=== PATIENT | male | born 1965 | race Caucasian/White ===

== ENCOUNTER 2017-08-12 10:49 | Emergency (ER) | payer MEDICARE ==
[2016-02-08 16:11] VITALS: BMI 26.6
[~2017-08-12 10:49] MED LIST: HYDROCODONE-APA1 TAB PO; MEDROL DOSE PACK4 MG; MEDROL DOSE PACK4 MG PO; PRINIVIL20 MG PO; PROAIR HFA8.5 GM INH; SEROQUEL25 MG PO; SYMBICORT 16010.2 GM INH; XANAX1 MG PO
== END 2017-08-12 12:33 | disposition home or self-care (01) ==
LOC: D.ER 10:49
DX: L02.415 Cutaneous abscess of right lower limb (principal); I10 Essential (primary) hypertension; J44.9 Chronic obstructive pulmonary disease, unspecified

== ENCOUNTER 2017-08-15 08:48 | Emergency (ER) | payer MEDICARE ==
[2016-02-08 16:11] VITALS: BMI 26.6
== END 2017-08-15 10:15 | disposition home or self-care (01) ==
LOC: D.ER 08:48
DX: L02.415 Cutaneous abscess of right lower limb (principal); F17.200 Nicotine dependence, unspecified, uncomplicated; J44.9 Chronic obstructive pulmonary disease, unspecified; I10 Essential (primary) hypertension

== ENCOUNTER 2017-08-19 08:51 | Emergency (ER) | payer MEDICARE ==
[2016-02-08 16:11] VITALS: BMI 26.6
== END 2017-08-19 09:40 | disposition home or self-care (01) ==
LOC: D.ER 08:51
DX: Z48.00 Encounter for change or removal of nonsurgical wound dressing (principal); S81.002D Unspecified open wound, left knee, subsequent encounter; X58.XXXD Exposure to other specified factors, subsequent encounter; Z76.5 Malingerer [conscious simulation]; Z91.19 Patient's noncompliance with other medical treatment and regimen; I10 Essential (primary) hypertension; J44.9 Chronic obstructive pulmonary disease, unspecified; F17.200 Nicotine dependence, unspecified, uncomplicated